=== PATIENT | female | born 1995 | race Two or more races ===

== ENCOUNTER 2020-08-17 18:15 | Outpatient (CLI) | payer SELFPAY ==
[~2020-08-17] VITALS: Ht 167.6 cm; Wt 80.0 kg
[2020-08-17 18:21] VITALS: BP 103/62
--- NOTE | 2020-08-17 19:58 | NUR ---
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 DID NOT MENTION TO BRICK SETTER SHE WAS 5 MONTHS . WHEN PROVIDER PULLED PT. BACK TO SEE PT. IN TRIAGE IT WAS DISCOVERED THAT PT. IS 5 MONTHS WITH ABD PAIN. PT. SENT UP TO L&D.
[2020-08-17 20:53] LABS: BASOPHILS % (AUTO) 0 % (0-1); EOSINOPHILS % (AUTO) 1 % (1-7); LYMPHOCYTES % (AUTO) 26 % (22-44); MEAN CORPUSCULAR HEMOGLOBIN 17.8 pg (27.0-34.8); MEAN PLATELET VOLUME 8.7 fL (7.4-10.4); MONOCYTES % (AUTO) 5 % (2-9); NEUTROPHILS % (AUTO) 67 % (42-75); PLATELET COUNT 373 x10^3/uL (130-400); RED BLOOD COUNT 4.68 x10^6/uL (3.82-5.3); RED CELL DISTRIBUTION WIDTH 19.6 % (9.6-15.2)
[2020-08-17 21:12] LABS: MICROSCOPIC INDICATED
[2020-08-17 21:22] LABS: AMPHETAMINE SCREEN, URINE Negative (Negative); BARBITURATE SCREEN, URINE Negative (Negative); BENZODIAZEPINE SCREEN, URINE Negative (Negative); CANNABINOID SCREEN, URINE Negative (Negative); COCAINE SCREEN, URINE Negative (Negative); METHADONE SCREEN, URINE Negative (Negative); OPIATE SCREEN, URINE Negative (Negative)
[2020-08-17 21:31] LABS: ANISOCYTOSIS 2+; MD MORPH REVIEW ONLY; MEAN CORPUSCULAR HGB CONC 29.8 g/dL (32.4-35.8); MICROCYTOSIS 2+
[2020-08-17 21:32] LABS: <PLATELET ESTIMATE> ADEQUATE; <PLT MORPHOLOGY> NORMAL PLT MORPH; HYPOCHROMIA 2+; OVALOCYTES 1+; TEAR DROPS 1+
== END 2020-08-17 22:36 | disposition home or self-care (01) ==
LOC: EDSTATUS 20:00 → LDOP 20:02
PROVIDERS: ATTEND Obstetrics & Gynecology
DX: O26.892 Other specified pregnancy related conditions, second trimester (principal); R10.9 Unspecified abdominal pain; Z3A.16 16 weeks gestation of pregnancy
CPT/HCPCS: 36415; 76805; 80307; 81001; 85025; 86592; 86762; 87086; 87340; 87491; 87591; 87806; 99211; G0463; G0475